=== PATIENT | male | born 1975 | race Hispanic/Latino ===

== ENCOUNTER 2017-10-22 06:55 | Emergency (ER) | payer OTHER ==
[2017-10-22] MEDS ORDERED: Naproxen 550 mg Tab PO STA (08:18)
--- NOTE | 2017-10-22 08:22 | ED PDOC ---
Arrival/HPI - General Chief Complaint: Lower Extremity Problem/Injury Time Seen by Provider: 10/22/17 08:13 Historian: Patient - History of Present Illness Narrative History of Present Illness (Text): 10/22/17 08:21 A 42 year old male, whose past medical history includes hernia surgery (1993), presents to the emergency department complaining of left ankle pain s/p fall two days ago. Patient reports he rolled on ice, has been limping and ambulating on ankle. Patient denies any other complaints at this time. Time/Duration: Other (two days) Symptom Onset: Sudden Symptom Course: Unchanged Activities at Onset: Light Past Medical History - Provider Review Nursing Documentation Reviewed: Yes - Infectious Disease Hx of Infectious Diseases: None - Psychiatric Hx Substance Use: No - Anesthesia Hx Anesthesia: No Family/Social History - Physician Review Nursing Documentation Reviewed: Yes Family/Social History: No Known Family HX Smoking Status: Unknown If Ever Smoked Hx Alcohol Use: No Hx Substance Use: No Allergies/Home Meds Allergies/Adverse Reactions: Allergies tetracycline Allergy (Verified 10/22/17 08:18) ANAPHYLAXIS Review of Systems - Physician Review All systems were reviewed & negative as marked: Yes - Review of Systems Constitutional: absent: Fevers Musculoskeletal: Other (left ankle pain) Neurological: absent: Headache Physical Exam Vital Signs Reviewed: Yes Vital Signs Temp Pulse Resp BP Pulse Ox 10/22/17 09:00 98 F 85 16 133/88 99 10/22/17 08:59 98.0 F 72 18 143/82 96 10/22/17 07:40 98 F 88 16 131/81 98 Temperature: Afebrile Blood Pressure: Normal Pulse: Regular Respiratory Rate: Normal Appearance: Positive for: Well-Appearing, Non-Toxic, Comfortable Pain Distress: None Mental Status: Positive for: Alert and Oriented X 3 - Systems Exam Head: Present: Atraumatic, Normocephalic Pupils: Present: PERRL Extroacular Muscles: Present: EOMI Conjunctiva: Present: Normal Mouth: Present: Moist Mucous Membranes Neck: Present: Normal Range of Motion Respiratory/Chest: Present: Clear to Auscultation, Good Air Exchange. No: Respiratory Distress, Accessory Muscle Use Cardiovascular: Present: Regular Rate and Rhythm, Normal S1, S2. No: Murmurs Abdomen: Present: Normal Bowel Sounds. No: Tenderness, Distention, Peritoneal Signs Back: Present: Normal Inspection Upper Extremity: Present: Normal Inspection. No: Cyanosis, Edema Lower Extremity: Present: Other (left ankle swelling) Neurological: Present: GCS=15, CN II-XII Intact, Speech Normal Skin: Present: Warm, Dry, Normal Color. No: Rashes Psychiatric: Present: Alert, Oriented x 3, Normal Insight, Normal Concentration Medical Decision Making ED Course and Treatment: 10/22/17 08:20 Impression: A 42 year old male with left ankle pain and swelling s/p fall two days ago. Differential Diagnosis included but are not limited to: left ankle pain r/o fracture Plan: -- Radiology left ankle -- Anaprox -- Reassess and disposition Progress Notes: 10/22/17 08:55 Fibula fracture, mildly displaced, as read by me. 10/22/17 08:[address] Leong, who will see patient and advised for patient to follow up in his office at this time. - RAD Interpretation Radiology Orders: 10/22/17 08:18 ANKLE LEFT 3 VIEWS ROUTINE [RAD] Stat - Medication Orders Current Medication Orders: Discontinued Medications Naproxen (Anaprox Ds) 550 mg PO STAT STA Stop: 10/22/17 08:19 Last Admin: 10/22/17 09:16 Dose: 550 mg - Scribe Statement The provider has reviewed the documentation as recorded by the Cole Khan Provider Scribe Attestation: All medical record entries made by the Scribe were at my direction and personally dictated by me. I have reviewed the chart and agree that the record accurately reflects my personal performance of the history, physical exam, medical decision making, and the department course for this patient. I have also personally directed, reviewed, and agree with the discharge instructions and disposition. Disposition/Present on Arrival - Present on Arrival Any Indicators Present on Arrival: No History of DVT/PE: No History of Uncontrolled Diabetes: No Urinary Catheter: No History of Decub. Ulcer: No History Surgical Site Infection Following: None - Disposition Have Diagnosis and Disposition been Completed?: Yes Diagnosis: Ankle fracture Disposition: HOME/ ROUTINE Disposition Time: 09:00 Condition: STABLE Discharge Instructions (ExitCare): Ankle Fracture Additional Instructions: please follow up with ortho. return to er with worsening symptoms or concerns. Prescriptions: Naproxen [Naprosyn] 500 mg PO BID PRN #14 tablet PRN Reason: Pain, Mild (1-3) Referrals: Esteban Leong, [Staff Provider] - Follow up with primary PCP,NO [Primary Care Provider] - Follow up with primary Forms: Victoria Plumb ([employer])
[2017-10-22 08:25] VITALS: RESP 16; TEMP 98
[2017-10-22 09:34] VITALS: BP 133/88; PULSE 85; O2SAT 99
--- NOTE | 2017-10-22 09:54 | RAD ---
PROCEDURE: Left Ankle Radiographs. HISTORY: trauma COMPARISON: None FINDINGS: BONES: There is a displaced obliquely oriented fracture through the distal fibula JOINTS: Normal. No osteoarthritis. Ankle mortise maintained. Talar dome intact SOFT TISSUES: Normal. OTHER FINDINGS: None. IMPRESSION: There is a displaced obliquely oriented fracture through the distal fibula
== END 2017-10-22 09:30 | disposition home or self-care (01) ==
LOC: ED 06:55
DX: S82.832A Other fracture of upper and lower end of left fibula, initial encounter for closed fracture (principal); W00.0XXA Fall on same level due to ice and snow, initial encounter